=== PATIENT | female | born 1950 | race Caucasian/White ===

== ENCOUNTER 2017-04-30 17:31 | Emergency (ER) | payer OTHER ==
[~2017-04-30] VITALS: Ht 160 cm; Wt 110.4 kg
[~2017-04-30 17:31] MED LIST: ATENOLOL100 M1 PO; JANUVIA100 MG PO; LEXAPRO10 MG PO; PEPCID20 MG PO; SYNTHROID150 MCG PO
[2017-04-30 18:32] LABS: HEMATOCRIT 42.2 % (36.0-46.0); MCH 28.8 PG (29.0-34.0); MCHC 32.9 G/DL (30.0-36.0); MCV 87.6 FL (83-99); MEAN PLAT.VOLUME 10.9 uM^3 (9.5-12.4); PLATELET COUNT 221 K/uL (156-360); RBC DIS.WIDTH-CV 14.2 % (11.8-14.6); RBC DIS.WIDTH-SD 45.2 % (39-53); RED BLOOD COUNT 4.82 M/uL (3.80-5.20); WHITE BLOOD COUNT 8.9 K/uL (4.1-10.2)
[2017-04-30 18:42] LABS: CHLORIDE 108 mEq/L (99-109); SODIUM 139 mEq/L (136-147)
[2017-04-30 18:43] LABS: GLUCOSE 132 mg/dL (70-99)
[2017-04-30 18:45] LABS: ANION GAP 6 MEQ/L (2-14)
[2017-04-30 18:47] LABS: GFR ESTIMATE (CALCULATED) > 59 mL/min/
[2017-04-30 18:48] LABS: UREA NITROGEN (BUN) 10 mg/dL (9-23)
[2017-04-30 18:54] LABS: TROP-I INTERPRETATION NEGATIVE; TROPONIN-I < 0.01 ng/mL (0.0-0.30)
[2017-04-30 20:21] VITALS: BP 124/67
== END 2017-04-30 20:23 | disposition home or self-care (01) ==
LOC: EME 17:31
DX: F43.20 Adjustment disorder, unspecified (principal); I10 Essential (primary) hypertension; E11.9 Type 2 diabetes mellitus without complications; E05.00 Thyrotoxicosis with diffuse goiter without thyrotoxic crisis or storm; Z88.8 Allergy status to other drugs, medicaments and biological substances
CPT/HCPCS: 71020; 80048; 84484; 85027; 93005; 99281; 99284

== ENCOUNTER 2018-01-12 18:10 | Emergency (ER) | payer OTHER ==
[~2018-01-12] VITALS: Ht 154.9 cm; Wt 107.6 kg
[2018-01-12 19:27] LABS: HEMOGLOBIN 16.5 G/DL (11.9-15.5); MCH 29.1 PG (29.0-34.0); MCHC 34.4 G/DL (30.0-36.0); MCV 84.7 FL (83-99); PLATELET COUNT 264 K/uL (156-360); RBC DIS.WIDTH-CV 13.9 % (11.8-14.6); RBC DIS.WIDTH-SD 43.2 % (39-53); RED BLOOD COUNT 5.67 M/uL (3.80-5.20)
[2018-01-12 19:35] LABS: CHLORIDE 96 mEq/L (99-109); POTASSIUM 3.6 mEq/L (3.7-5.4); SODIUM 133 mEq/L (136-147)
[2018-01-12 19:37] LABS: GLUCOSE 202 mg/dL (70-99)
[2018-01-12 19:48] LABS: CREATININE 0.8 mg/dL (0.6-1.3); GFR ESTIMATE (CALCULATED) > 59 mL/min/; UREA NITROGEN (BUN) 11 mg/dL (9-23)
[2018-01-12 19:56] LABS: ALBUMIN 4.5 g/dL (3.2-4.8)
[2018-01-12 19:59] LABS: TOTAL PROTEIN 8.2 g/dL (6.4-8.3)
[2018-01-12 20:01] LABS: TOTAL BILIRUBIN 1.1 mg/dL (0.0-1.0)
[2018-01-12 20:02] LABS: ALKALINE PHOSPHATASE 110 IU/L (3-129)
[2018-01-12 20:04] LABS: AST (GOT) 16 IU/L (2-34)
[2018-01-12 20:05] LABS: ALT (GPT) 20 IU/L (3-49); DIRECT BILIRUBIN 0.4 mg/dL (0.0-0.3)
[2018-01-12 20:06] LABS: LIPASE 11 U/L (1.0-51.0)
[2018-01-12 20:12] LABS: TROP-I INTERPRETATION NEGATIVE; TROPONIN-I 0.01 ng/mL (0.0-0.30)
[2018-01-12 21:25] LABS: APPEARANCE SL.HAZY ((CLEAR)); BILIRUBIN NEGATIVE; BLOOD NEGATIVE; COLOR YELLOW ((YELLOW)); GLUCOSE (STRIP) NEGATIVE; KETONES 5; LEUKOCYTES NEGATIVE; NITRITE NEGATIVE; PROTEIN (STRIP) NEGATIVE; SPECIFIC GRAVITY 1.014 (1.000-1.030); UROBILINOGEN 0.2 MG/DL (0.2-1.0)
[2018-01-12 21:37] LABS: BACTERIA RARE /HPF; RED BLOOD CELLS 0-5 /HPF (0-5); UCUL ADDED? NO; WHITE BLOOD CELLS 0-5 /HPF (0-5)
[2018-01-12 21:51] LABS: EPITHELIAL CELLS 1+ /HPF; MUCUS 1+ /LPF
[2018-01-12 21:52] LABS: HYALINE CASTS RARE /LPF
[2018-01-13 01:04] LABS: HEMATOCRIT 43.2 % (36.0-46.0); HEMOGLOBIN 14.8 G/DL (11.9-15.5); MCH 29.5 PG (29.0-34.0); MCHC 34.3 G/DL (30.0-36.0); MCV 86.1 FL (83-99); PLATELET COUNT 211 K/uL (156-360); RBC DIS.WIDTH-CV 13.8 % (11.8-14.6); RBC DIS.WIDTH-SD 43.1 % (39-53); RED BLOOD COUNT 5.02 M/uL (3.80-5.20); WHITE BLOOD COUNT 13.4 K/uL (4.1-10.2)
[2018-01-13 01:12] LABS: CHLORIDE 103 mEq/L (99-109); POTASSIUM 3.6 mEq/L (3.7-5.4); SODIUM 136 mEq/L (136-147)
[2018-01-13 01:14] LABS: GLUCOSE 192 mg/dL (70-99)
[2018-01-13 01:18] LABS: CREATININE 0.8 mg/dL (0.6-1.3); GFR ESTIMATE (CALCULATED) > 59 mL/min/
[2018-01-13 01:19] LABS: UREA NITROGEN (BUN) 11 mg/dL (9-23)
[2018-01-13] MEDS ORDERED: ZOFRAN4 MG PO (01:48)
[2018-01-13 03:00] VITALS: BP 133/90
== END 2018-01-13 03:18 | disposition home or self-care (01) ==
LOC: EME 18:10 → RME 18:10
PROVIDERS: Physician Assistant
DX: R11.2 Nausea with vomiting, unspecified (principal); R00.0 Tachycardia, unspecified; K58.0 Irritable bowel syndrome with diarrhea; K42.9 Umbilical hernia without obstruction or gangrene; E11.9 Type 2 diabetes mellitus without complications; I10 Essential (primary) hypertension; E05.00 Thyrotoxicosis with diffuse goiter without thyrotoxic crisis or storm; J30.9 Allergic rhinitis, unspecified; Z79.84 Long term (current) use of oral hypoglycemic drugs; Z90.710 Acquired absence of both cervix and uterus; Z90.49 Acquired absence of other specified parts of digestive tract; Z88.5 Allergy status to narcotic agent; Z88.2 Allergy status to sulfonamides
CPT/HCPCS: 71046; 74177; 80048; 80076; 81003; 83690; 84484; 85027; 85379; 93005; 99281; 99285; J2405; J2765; J7030